=== PATIENT | male | born 1980 | race Caucasian/White ===

== ENCOUNTER 2018-08-28 10:19 | Emergency (ER) | payer OTHER ==
[2018-08-28] MEDS ORDERED: Sodium Chloride 0.9% 1,000 ML IV ONE (10:24)
--- NOTE | 2018-08-28 10:29 | EDM.PDOC ---
ED HPI GENERAL MEDICAL PROBLEM - General Chief Complaint: Syncope Stated Complaint: PASSED OUT Time Seen by Provider: 08/28/18 10:22 Source of Information: Reports: Patient History Limitations: Reports: No Limitations - History of Present Illness INITIAL COMMENTS - FREE TEXT/NARRATIVE: HISTORY AND PHYSICAL: History of present illness: Patient is a 38-year-old male who presents to the emergency room via ground EMS after syncopal event. Patient [place] when he was in the elevator preparing to exit the building and he suddenly felt nauseous and urgency to void. He states he became anxious as he did not want to "vomit in front of everyone" and then woke up on the floor of the elevator. Bystander states that he did hit his head on the railing and fell to the ground. He was alert within a few seconds post-syncope. He was able to get up and walk out of the elevator and was encouraged to lay down until EMS arrived. Patient currently complains of upper thoracic and lower cervical spine discomfort with palpation and a generalized headache. Prior to the event he states he had felt well, although had not eaten breakfast. Blood sugar upon EMS arrival was 70. He denies any fever, chills, chest pain, shortness of breath or cough. He denies any abdominal pain, nausea has subsided, denies vomiting, constipation, dysuria or diarrhea. States he is otherwise healthy and does not take any medications for any other reason. Denies any drug or alcohol abuse. Review of systems: As per history of present illness and below otherwise all systems reviewed and negative. Past medical history: As per history of present illness and as reviewed below otherwise noncontributory. Surgical history: As per history of present illness and as reviewed below otherwise noncontributory. Social history: See social history for further information Family history: As per history of present illness and as reviewed below otherwise noncontributory. Physical exam: General: Well-developed and well-nourished 38 showed male. Alert and oriented. Nontoxic appearing and in no acute distress. HEENT: Atraumatic, normocephalic, pupils equal and reactive bilaterally, negative for conjunctival pallor or scleral icterus, mucous membranes moist, TMs normal bilaterally, throat clear, neck supple, nontender, trachea midline. No drooling or trismus noted. No meningeal signs. No hot potato voice noted. Lungs: Clear to auscultation, breath sounds equal bilaterally, chest nontender. Heart: S1S2, regular rate and rhythm without overt murmur Abdomen: Soft, nondistended, nontender. Negative for masses or hepatosplenomegaly. Negative for costovertebral tenderness. Pelvis: Stable nontender. Genitourinary: Deferred. Rectal: Deferred. Skin: Intact, warm, dry. No lesions or rashes noted. Extremities: Atraumatic, negative for cords or calf pain. Neurovascular unremarkable. C-spine/Back: No pinpoint vertebral tenderness upon palpation. He does have some paraspinous tenderness to the lower cervical spine and upper thoracic spine that radiates across his upper back. No vertebral step-offs, deformities or crepitus noted. Patient was ambulatory on the scene. He denies any numbness or tingling to his distal extremities. Strong distal pulses bilaterally. Positive CMS. No urinary or fecal incontinence. Neuro: Awake, alert, oriented. Cranial nerves II through XII unremarkable. Cerebellum unremarkable. Motor and sensory unremarkable throughout. Exam nonfocal. Notes: Upon arrival patient is C-collared and backboarded. The backboard was removed and c-collar left in place until imaging is completed. Lab work is unremarkable. Imaging shows no acute findings. C-collar was removed. Patient states he does feel improved after IV fluids and medications. Still has muscular pain to bilateral trapezius. Admission was offered, he declines. He prefers to follow-up with his primary care provider in the next 1- 2 days. Supportive care measures were reviewed and discussed. Voices understanding and is agreeable to plan of care. Denies any further questions or concerns at this time. Diagnostics: CBC, CMP, troponin, EKG, head CT, cervical spine/thoracic spine CT, orthostatic vital signs Therapeutics: IV fluid, Zofran, Toradol Prescription: Flexeril (#20) Impression: Syncope Neck pain Head injury Plan: 1. Rest, ice the painful areas as able. Eat routine small meals, increase your oral fluids 2. Tylenol and/or ibuprofen as needed for pain management. Flexeril can be used 3 times daily as needed for muscular pain. This medication may cause drowsiness a do not take it while driving or needing to be functioning outside the house. 3. Follow-up with your primary care provider in the next 1-2 days. Return to the ED as needed and as discussed. Definitive disposition and diagnosis as appropriate pending reevaluation and review of above. Upper Back Pain Score (Numeric/FACES): 5 - Related Data Allergies Allergy/AdvReac Type Severity Reaction Status Date / Time aminocaproic acid Allergy Other Verified 08/28/18 10:22 Sulfa (Sulfonamide Allergy Seizure Verified 08/28/18 10:22 Antibiotics) Home Meds: Home Meds [place]-3 Fatty Acids [[place]-3] 100 mg PO 08/28/18 [History] Vit B Cmplx NO3/Fa/C/Biot/Zinc [Nephplex Rx] 1 mg PO DAILY 08/28/18 [History] Past Medical History Other HEENT History: History of loss of vision in years prior. Social & Family History - Family History Cardiac: Reports: Heart Failure Respiratory: Reports: COPD GI: Reports: Diverticulitis : Reports: Cystic Kidney Disease - Caffeine Use Caffeine Use: Reports: None ED ROS GENERAL - Review of Systems Review Of Systems: ROS reveals no pertinent complaints other than HPI. - Physical Exam Exam: See Below (See dictation) Course - Vital Signs Last Recorded V/S: Last Vital Signs Temp 97.7 F 08/28/18 10:25 Pulse 61 08/28/18 10:25 Resp 16 08/28/18 10:25 BP 123/91 H 08/28/18 10:28 Pulse Ox 96 08/28/18 10:25 Orthostatic Blood Pressure [ 143/77 Standing] Orthostatic Blood Pressure [ 132/81 Sitting] Orthostatic Blood Pressure [ 127/73 Supine] - Orders/Labs/Meds Orders: Active Orders 24 hr Category Date Time Status EKG Documentation Completion [RC] STAT Care 08/28/18 10:24 Active Orthostatic Vital Signs [RC] ASDIRECTED Care 08/28/18 10:24 Active Labs: Laboratory Tests 08/28/18 08/28/18 08/28/18 Range/Units 10:33 10:33 10:33 WBC 7.17 (4.0-11.0) K/uL RBC 5.14 (4.50-5.90) M/uL Hgb 15.8 (13.0-17.0) g/dL Hct 44.5 (38.0-50.0) % MCV 86.6 (80.0-98.0) fL MCH 30.7 (27.0-32.0) pg MCHC 35.5 (31.0-37.0) g/dL RDW Std Deviation 41.1 (28.0-62.0) fl RDW Coeff of Toya 13 (11.0-15.0) % Plt Count 182 (150-400) K/uL MPV 10.00 (7.40-12.00) fL Neut % (Auto) 62.5 (48.0-80.0) % Lymph % (Auto) 28.0 (16.0-40.0) % [place] % (Auto) 7.5 (0.0-15.0) % Eos % (Auto) 1.7 (0.0-7.0) % Baso % (Auto) 0.3 (0.0-1.5) % Neut # (Auto) 4.5 (1.4-5.7) K/uL Lymph # (Auto) 2.0 (0.6-2.4) K/uL [place] # (Auto) 0.5 (0.0-0.8) K/uL Eos # (Auto) 0.1 (0.0-0.7) K/uL Baso # (Auto) 0.0 (0.0-0.1) K/uL Nucleated RBC % 0.0 /100WBC Nucleated RBCs # 0 K/uL Sodium 137 (136-148) mmol/L Potassium 3.7 (3.5-5.1) mmol/L Chloride 104 (98-107) mmol/L Carbon Dioxide 24.4 (21.0-32.0) mmol/L BUN 11 (7.0-18.0) mg/dL Creatinine 1.0 (0.8-1.3) mg/dL Est Cr Clr Drug Dosing 95.48 mL/min Estimated GFR (MDRD) > 60.0 ml/min Glucose 87 (74-106) mg/dL Calcium 9.4 (8.5-10.1) mg/dL Total Bilirubin 0.6 (0.2-1.0) mg/dL AST 18 (15-37) IU/L ALT 21 (14-63) IU/L Alkaline Phosphatase 50 (46-116) U/L Troponin I < 0.050 (0.000-0.056) ng/mL Total Protein 7.6 (6.4-8.2) g/dL Albumin 3.9 (3.4-5.0) g/dL Globulin 3.7 (2.6-4.0) g/dL Albumin/Globulin Ratio 1.1 (0.9-1.6) Urine Color Urine Appearance Urine pH (5.0-8.0) Ur Specific [place] (1.001-1.035) Urine Protein (NEGATIVE) mg/dL Urine Glucose (UA) (NEGATIVE) mg/dL Urine Ketones (NEGATIVE) mg/dL Urine Occult Blood (NEGATIVE) Urine Nitrite (NEGATIVE) Urine Bilirubin (NEGATIVE) Urine Urobilinogen (<2.0) EU/dL Ur Leukocyte Esterase (NEGATIVE) 08/28/18 Range/Units 10:47 WBC (4.0-11.0) K/uL RBC (4.50-5.90) M/uL Hgb (13.0-17.0) g/dL Hct (38.0-50.0) % MCV (80.0-98.0) fL MCH (27.0-32.0) pg MCHC (31.0-37.0) g/dL RDW Std Deviation (28.0-62.0) fl RDW Coeff of [place]a (11.0-15.0) % Plt Count (150-400) K/uL MPV (7.40-12.00) fL Neut % (Auto) (48.0-80.0) % Lymph % (Auto) (16.0-40.0) % [place] % (Auto) (0.0-15.0) % Eos % (Auto) (0.0-7.0) % Baso % (Auto) (0.0-1.5) % Neut # (Auto) (1.4-5.7) K/uL Lymph # (Auto) (0.6-2.4) K/uL [place] # (Auto) (0.0-0.8) K/uL Eos # (Auto) (0.0-0.7) K/uL Baso # (Auto) (0.0-0.1) K/uL Nucleated RBC % /100WBC Nucleated RBCs # K/uL Sodium (136-148) mmol/L Potassium (3.5-5.1) mmol/L Chloride (98-107) mmol/L Carbon Dioxide (21.0-32.0) mmol/L BUN (7.0-18.0) mg/dL Creatinine (0.8-1.3) mg/dL Est Cr Clr Drug Dosing mL/min Estimated GFR (MDRD) ml/min Glucose (74-106) mg/dL Calcium (8.5-10.1) mg/dL Total Bilirubin (0.2-1.0) mg/dL AST (15-37) IU/L ALT (14-63) IU/L Alkaline Phosphatase (46-116) U/L Troponin I (0.000-0.056) ng/mL Total Protein (6.4-8.2) g/dL Albumin (3.4-5.0) g/dL Globulin (2.6-4.0) g/dL Albumin/Globulin Ratio (0.9-1.6) Urine Color YELLOW Urine Appearance CLEAR Urine pH 6.0 (5.0-8.0) Ur Specific [place] 1.010 (1.001-1.035) Urine Protein NEGATIVE (NEGATIVE) mg/dL Urine Glucose (UA) NEGATIVE (NEGATIVE) mg/dL Urine Ketones NEGATIVE (NEGATIVE) mg/dL Urine Occult Blood NEGATIVE (NEGATIVE) Urine Nitrite NEGATIVE (NEGATIVE) Urine Bilirubin NEGATIVE (NEGATIVE) Urine Urobilinogen 0.2 (<2.0) EU/dL Ur Leukocyte Esterase NEGATIVE (NEGATIVE) Meds: Medications Discontinued Medications Generic Name Dose Route Start Last Admin Trade Name Freq PRN Reason Stop Dose Admin Sodium Chloride 1,000 mls @ 999 mls/hr 08/28/18 10:24 08/28/18 10:31 Normal Saline IV 08/28/18 11:24 999 mls/hr STAT ONE Administration Ketorolac Tromethamine 30 mg 08/28/18 11:08 08/28/18 11:21 Toradol IVPUSH 08/28/18 11:09 30 mg ONETIME ONE Administration Ondansetron HCl 4 mg 08/28/18 11:08 08/28/18 11:22 Zofran IVPUSH 08/28/18 11:09 4 mg ONETIME ONE Administration Departure - Departure Time of Disposition: 12:46 Disposition: Home, Self-Care 01 Clinical Impression: Neck pain, acute Syncope Qualifiers: Syncope type: unspecified Qualified Code(s): R55 - Syncope and collapse Head injury Qualifiers: Encounter type: initial encounter Qualified Code(s): S09.90XA - Unspecified injury of head, initial encounter - Discharge Information Instructions: Head Injury, Adult, [id number], Syncope, Uzry-[id number] Referrals: PCP,None [Primary Care Provider] - Forms: ED Department Discharge Additional Instructions: The following information is given to patients seen in the emergency department who are being discharged to home. This information is to outline your options for follow-up care. We provide all patients seen in our emergency department with a follow-up referral. The need for follow-up, as well as the timing and circumstances, are variable depending upon the specifics of your emergency department visit. If you don't have a primary care physician on staff, we will provide you with a referral. We always advise you to contact your personal physician following an emergency department visit to inform them of the circumstance of the visit and for follow-up with them and/or the need for any referrals to a consulting specialist. The emergency department will also refer you to a specialist when appropriate. This referral assures that you have the opportunity for follow-up care with a specialist. All of these measure are taken in an effort to provide you with optimal care, which includes your follow-up. Under all circumstances we always encourage you to contact your private physician who remains a resource for coordinating your care. When calling for follow-up care, please make the office aware that this follow-up is from your recent emergency room visit. If for any reason you are refused follow-up, please contact the [facility] Emergency Department at and asked to speak to the emergency department charge nurse. [facility] [address] [place] [id number] [id number] 1. Rest, ice the painful areas as able. Eat routine small meals, increase your oral fluids 2. Tylenol and/or ibuprofen as needed for pain management. Flexeril can be used 3 times daily as needed for muscular pain. This medication may cause drowsiness a do not take it while driving or needing to be functioning outside the house. 3. Follow-up with your primary care provider in the next 1-2 days. Return to the ED as needed and as discussed. - My Orders Last 24 Hours: My Active Orders 08/28/18 10:24 EKG Documentation Completion [RC] STAT Orthostatic Vital Signs [RC] ASDIRECTED - Assessment/Plan Last 24 Hours: My Active Orders 08/28/18 10:24 EKG Documentation Completion [RC] STAT Orthostatic Vital Signs [RC] ASDIRECTED
[2018-08-28] MEDS ORDERED: Ondansetron 4 MG/2 ML SDV IVPUSH ONE (11:08)
[2018-08-28] MEDS ORDERED: Ketorolac 30 MG/ML SDV IVPUSH ONE (11:08)
[2018-08-28 11:11] LABS: CHLORIDE,CL 104 mmol/L (98-107); SODIUM,NA 137 mmol/L (136-148)
--- NOTE | 2018-08-28 12:35 | CT ---
EXAMINATION: Non contrast CT head. Coronal and sagittal reformats. HISTORY: Pain FINDINGS: No evidence of intra or extra axial hemorrhage, mass, midline shift, hydrocephalus or edema. No hypoattenuation changes in the major vascular territories to suggest acute infarct. No abnormal intracranial calcifications are detected. No evidence of substantial vascular calcifications. Paranasal sinuses and mastoid air cells are well aerated without substantial findings. Orbits and globes are symmetric. Pituitary fossa appears unremarkable. Calvarium is intact. No evidence of skull fracture. IMPRESSION: No acute intracranial findings.
--- NOTE | 2018-08-28 12:35 | CT ---
EXAMINATION: CT cervical and thoracic spine without contrast HISTORY: Pain COMPARISON: None TECHNIQUE: Axial CT imaging obtained through the cervical and thoracic spine without contrast. Coronal and sagittal reconstructions obtained. FINDINGS: The cervical and thoracic spinal alignment is normal. Vertebral body heights and disc spaces appear well-maintained. There is no fracture or acute osseous abdomen body. Bone mineralization is normal. There is no fracture or acute osseous abnormality. Paravertebral soft tissues are normal. IMPRESSION: 1. No acute findings noted within the cervical and thoracic spine.
[2018-08-28 13:53] VITALS: BP 143/77
== END 2018-08-28 12:51 | disposition home or self-care (01) ==
LOC: MW.ED 10:19
DX: R55 Syncope and collapse (principal); S09.90XA Unspecified injury of head, initial encounter; M54.2 Cervicalgia; M54.6 Pain in thoracic spine; Z88.2 Allergy status to sulfonamides; Z88.8 Allergy status to other drugs, medicaments and biological substances; W18.09XA Striking against other object with subsequent fall, initial encounter
CPT/HCPCS: 36415; 70450; 72125; 72128; 80053; 81003; 84484; 85025; 93005; 96361; 96374; 96375; 99285; J1885; J2405; J7040; 99283

== ENCOUNTER 2021-06-07 20:52 | Emergency (ER) | payer SELFPAY ==
--- NOTE | 2021-06-07 21:17 | EDM.PDOC ---
ED HPI GENERAL MEDICAL PROBLEM - General Chief Complaint: Cardiovascular Problem Stated Complaint: HIGH BLOOD PRESSURE Time Seen by Provider: 06/07/21 20:54 - History of Present Illness INITIAL COMMENTS - FREE TEXT/NARRATIVE: History of present illness: [] Patient is here complaining of body aches. He has a wrist blood pressure monitor he uses at home and is almost always normal or low. He had readings over 200 systolic now over 100 diastolic today and came in. He reports body aches. The body aches are similar to what he gets after he works out hard but he has not been working out. Patient is a non-smoker and not diabetic. His cholesterols been normal. His blood pressure usually runs normal. He does not see a doctor on a regular basis. Patient's grandmother had hypertension and mother of kidney failure. Mother and father both smoked heavily. Patient had COVID-19 a month ago and lost his taste and smell. He seems to have recovered completely. Review of systems: As per history of present illness and below otherwise all systems reviewed and negative. Past medical history: As per history of present illness and as reviewed below otherwise noncontributory. Surgical history: As per history of present illness and as reviewed below otherwise noncontributory. Social history: No reported history of drug or alcohol abuse. Family history: As per history of present illness and as reviewed below otherwise noncontributory. Physical exam: Constitutional - well developed, well-nourished and in no acute distress HEENT - normocephalic, no evidence of trauma - external nose and mouth normal - no mass in neck and no JVD - mucosae moist EYES - full EOM, PERRL, no icterus - no evidence of inflammation, injection, or drainage Respiratory - no respiratory distress, equal bilateral expansion, lungs clear to auscultation and no abnormal lung sounds Cardiovascular - Regular Rhythm with S1 and S2 appreciated and no murmur, gallop or rub. GI - abdomen soft without distension or organomegaly - normal bowel sounds - no guard or rebound Musculoskeletal no gross deformity of long bones or joints - no tenderness, swelling or edema Neurologic - Alert and oriented times four - CN II-XII grossly intact - motor sensory and coordination symmetrically normal Psychiatric - appropriate mood and affect with normal thought content Hematologic - No petechiae or purpura - mucosa appropriate color and sclera not pale - normal nail bed color and refill Integument - no rash or evidence of trauma - normal turgor Diagnostics: [] Therapeutics: [] Impression: [] Plan: [] Definitive disposition and diagnosis as appropriate pending reevaluation and review of above. - Related Data Allergies Allergy/AdvReac Type Severity Reaction Status Date / Time aminocaproic acid Allergy Other Verified 06/07/21 21:17 Sulfa (Sulfonamide Allergy Seizure Verified 06/07/21 21:17 Antibiotics) Home Meds: Home Meds [place]-3 Fatty Acids [[place]-3] 100 mg PO 08/28/18 [History] Vit B Cmplx NO3/Fa/C/Biot/Zinc [Nephplex Rx] 1 mg PO DAILY 08/28/18 [History] Past Medical History Other HEENT History: History of loss of vision in years prior. Cardiovascular History: Reports: None Respiratory History: Reports: None Genitourinary History: Reports: None Musculoskeletal History: Reports: None Neurological History: Reports: None Psychiatric History: Reports: None Endocrine/Metabolic History: Reports: None Immunologic History: Reports: None Oncologic (Cancer) History: Reports: None Dermatologic History: Reports: None - Infectious Disease History Infectious Disease History: Reports: None - Past Surgical History Head Surgeries/Procedures: Reports: None GI Surgical History: Reports: Appendectomy Social & Family History - Family History Family Medical History: No Pertinent Family History Cardiac: Reports: Heart Failure Respiratory: Reports: COPD GI: Reports: Diverticulitis : Reports: Cystic Kidney Disease - Caffeine Use Caffeine Use: Reports: None ED ROS GENERAL - Review of Systems Review Of Systems: Comprehensive ROS is negative, except as noted in HPI. ED EXAM, GENERAL - Physical Exam Exam: See Below Free Text/Narrative:: My physical exam is in the HPI #1 Interpretation EKG Interpretation Comments: EKG done 06/07/2021 9:41 PM shows a sinus rhythm with a heart rate 87 NE interval 132 a QT duration 436 and axis of 39. There is nonspecific T abnormality in lead aVF. Compared to 08/28/2018 this is not changed. Impression normal EKG Course - Vital Signs Last Recorded V/S: Last Vital Signs Temp 36.6 C 06/07/21 21:18 Pulse 83 06/07/21 22:12 Resp 17 06/07/21 22:12 BP 146/101 H 11/28/21 22:12 Pulse Ox 96 06/07/21 22:12 - Orders/Labs/Meds Labs: Laboratory Tests 06/07/21 06/07/21 06/07/21 Range/Units 21:32 21:32 21:52 WBC 7.05 (4.0-11.0) K/uL RBC 5.31 (4.50-5.90) M/uL Hgb 16.6 (13.0-17.0) g/dL Hct 45.6 (38.0-50.0) % MCV 85.9 (80.0-98.0) fL MCH 31.3 (27.0-32.0) pg MCHC 36.4 (31.0-37.0) g/dL RDW Std Deviation 39.8 (28.0-62.0) fl RDW Coeff of Toya 13 (11.0-15.0) % Plt Count 187 (150-400) K/uL MPV 10.10 (7.40-12.00) fL Neut % (Auto) 57.4 (48.0-80.0) % Lymph % (Auto) 33.3 (16.0-40.0) % Sac % (Auto) 7.2 (0.0-15.0) % Eos % (Auto) 1.7 (0.0-7.0) % Baso % (Auto) 0.4 (0.0-1.5) % Neut # (Auto) 4.0 (1.4-5.7) K/uL Lymph # (Auto) 2.4 (0.6-2.4) K/uL Sac # (Auto) 0.5 (0.0-0.8) K/uL Eos # (Auto) 0.1 (0.0-0.7) K/uL Baso # (Auto) 0.0 (0.0-0.1) K/uL Nucleated RBC % 0.0 /100WBC Nucleated RBCs # 0 K/uL Sodium 141 (136-148) mmol/L Potassium 3.5 (3.5-5.1) mmol/L Chloride 104 (98-107) mmol/L Carbon Dioxide 23.0 (21.0-32.0) mmol/L BUN 11 (7.0-18.0) mg/dL Creatinine 1.0 (0.8-1.3) mg/dL Est Cr Clr Drug Dosing 93.64 mL/min Estimated GFR (MDRD) > 60.0 ml/min Glucose 94 (74-106) mg/dL Calcium 9.4 (8.5-10.1) mg/dL Total Bilirubin 0.4 (0.2-1.0) mg/dL AST 24 (15-37) IU/L ALT 32 (14-63) IU/L Alkaline Phosphatase 56 (46-116) U/L Creatine Kinase 113 (26-308) U/L Troponin I < 0.050 (0.000-0.056) ng/mL Total Protein 8.0 (6.4-8.2) g/dL Albumin 3.9 (3.4-5.0) g/dL Globulin 4.1 H (2.6-4.0) g/dL Albumin/Globulin Ratio 1.0 (0.9-1.6) Urine Color YELLOW Urine Appearance CLEAR Urine pH 5.5 (5.0-8.0) Ur Specific [place] >= 1.030 (1.001-1.035) Urine Protein NEGATIVE (NEGATIVE) mg/dL Urine Glucose (UA) NEGATIVE (NEGATIVE) mg/dL Urine Ketones NEGATIVE (NEGATIVE) mg/dL Urine Occult Blood NEGATIVE (NEGATIVE) Urine Nitrite NEGATIVE (NEGATIVE) Urine Bilirubin NEGATIVE (NEGATIVE) Urine Urobilinogen 0.2 (<2.0) EU/dL Ur Leukocyte Esterase NEGATIVE (NEGATIVE) Departure - Departure Time of Disposition: 22:25 Disposition: Home, Self-Care 01 Condition: Good Clinical Impression: Elevated blood pressure reading, Myalgia Instructions: Preventing Hypertension, Managing Your Hypertension Referrals: PCP,None [Primary Care Provider] - Forms: ED Department Discharge Additional Instructions: Increase exercise. Reduce salt intake. Reduce total calories relative to energy expenditure. [id number] ibuprofen or naproxen for muscle aches. If you get a fever continue have muscle aches come to the pulmonary clinic here for another Covid test. If your blood pressure readings are elevated above 139 systolic or above 79 diastolic more than 2 or 3 times this week have primary care initiate medical treatment for hypertension. If you get a headache dizzy or any strokelike symptoms return immediately to the emergency department. [facility] [address] [place] [id number] [facility] [address] [place] [id number] The following information is given to patients seen in the emergency department who are being discharged to home. This information is to outline your options for follow-up care. We provide all patients seen in our emergency department with a follow-up referral. The need for follow-up, as well as the timing and circumstances, are variable depending upon the specifics of your emergency department visit. If you don't have a primary care physician on staff, we will provide you with a referral. We always advise you to contact your personal physician following an emergency department visit to inform them of the circumstance of the visit and for follow-up with them and/or the need for any referrals to a consulting specialist. The emergency department will also refer you to a specialist when appropriate. This referral assures that you have the opportunity for follow-up care with a specialist. All of these measure are taken in an effort to provide you with optimal care, which includes your follow-up. Under all circumstances we always encourage you to contact your private physician who remains a resource for coordinating your care. When calling for follow-up care, please make the office aware that this follow-up is from your recent emergency room visit. If for any reason you are refused follow-up, please contact the [facility] Emergency Department at and asked to speak to the emergency department charge nurse. Sepsis Event Note (ED) - Focused Exam Vital Signs: Vital Signs Temp Pulse Resp BP Pulse Ox 06/07/21 22:12 83 17 146/101 H 96 06/07/21 21:18 36.6 C 99 18 155/100 H 100
--- NOTE | 2021-06-07 21:49 | CR ---
CHEST 1 VIEW AP INDICATION: Hypertension IMPRESSION: Lordotic view. Normal heart size and vascular pattern. Lungs are clear of focal opacities. No pneumothorax or pleural abnormality. Dictated by Greg Beebe MD @ 06/07/2021 9:48:05 PM (Electronically Signed)
[2021-06-07 22:05] LABS: BLOOD UREA NITROGEN,BUN 11 mg/dL (7.0-18.0); CHLORIDE,CL 104 mmol/L (98-107); GLUCOSE RANDOM 94 mg/dL (74-106); POTASSIUM,K 3.5 mmol/L (3.5-5.1); SODIUM,NA 141 mmol/L (136-148)
[2021-06-07 22:13] VITALS: BP 146/101; PULSE 83
== END 2021-06-07 22:38 | disposition home or self-care (01) ==
LOC: MW.ED 20:52
DX: M79.10 Myalgia, unspecified site (principal); R03.0 Elevated blood-pressure reading, without diagnosis of hypertension; Z86.16 Personal history of COVID-19; Z88.8 Allergy status to other drugs, medicaments and biological substances; Z88.2 Allergy status to sulfonamides
CPT/HCPCS: 36415; 71045; 71045-26; 80053; 81003; 82550; 84484; 85025; 93005; 99284-25

== ENCOUNTER 2023-06-30 09:28 | Emergency (ER) | payer SELFPAY ==
[2023-06-30] MEDS ORDERED: Cyclobenzaprine 10 MG Tab PO STA (10:24)
[2023-06-30] MEDS ORDERED: Ketorolac 10 MG Tab PO STA (10:24)
[2023-06-30 10:32] LABS: APPEARANCE,URINE CLEAR; BILIRUBIN,URINE NEGATIVE (NEGATIVE); COLOR,URINE YELLOW; GLUCOSE,URINE NEGATIVE (NEGATIVE); KETONES,URINE NEGATIVE (NEGATIVE); LEUKOCYTE ESTERASE,URINE NEGATIVE (NEGATIVE); NITRITE,URINE NEGATIVE (NEGATIVE); OCCULT BLOOD,URINE NEGATIVE (NEGATIVE); PROTEIN,URINE NEGATIVE (NEGATIVE); UROBILINOGEN,URINE 0.2 EU/dL (<2.0)
[2023-06-30] MEDS ORDERED: Lidocaine 4% 1 each Patch TOP STA (11:58)
[2023-06-30 12:24] VITALS: BP 128/88; PULSE 71
== END 2023-06-30 12:44 | disposition home or self-care (01) ==
LOC: MW.ED 09:28
DX: M54.6 Pain in thoracic spine (principal); Z88.2 Allergy status to sulfonamides; Z88.8 Allergy status to other drugs, medicaments and biological substances; Z90.49 Acquired absence of other specified parts of digestive tract
CPT/HCPCS: 72100; 81003; 99283; A9270